=== PATIENT | male | born 2005 ===

== ENCOUNTER → 2024-05-19 | Outpatient (CLI) | payer OTHER ==
[~2024-05-19] MED LIST: ACET325UDC; AMOX50SU PO; CODACEE120 PO; CODGUAEL PO; GUAI100SY; IBUP100S; IBUP100S PO; VITS c FLORIDE
== END | disposition home or self-care (01) ==
LOC: LAB SHORT 07:47 → PLD 07:47
DX: Q82.8 Other specified congenital malformations of skin (principal)
CPT/HCPCS: 88305; 88312